=== PATIENT | male | born 2000 | race Caucasian/White ===

== ENCOUNTER 2018-07-03 11:39 | Day surgery (SDC) | payer BC ==
[~2018-07-03 11:39] MED LIST: Dexamethasone 20 MG/5 ML VIAL ONE; Glycopyrrolate 0.2 MG/ML 5 ML SYRINGE ONE; Lidocaine 1% PF 5 ML VIAL ONE; Ondansetron HCl/PF 4 MG/2 ML Vial ONE; PROPOFOL 200 MG/20 ML VIAL ONE; Succinylcholine Chloride 20 MG/ML 10 ml SYRINGE FS ONE
[2018-07-03] MEDS ORDERED: Bupivacaine HCl 0.5%/Epinephrine 1:200,000/PF 30 ml Vial ONE (13:42)
[2018-07-03] MEDS ORDERED: Fentanyl 250 MCG/5 ML VIAL ONE (13:47)
[2018-07-03] MEDS ORDERED: Midazolam HCl 2 mg/2 ml Vial ONE (13:47)
[2018-07-03] MEDS ORDERED: Piperacillin/Tazobactam 3.375 GM VIAL ONE (14:41)
--- NOTE | 2018-07-03 14:41 | HP ---
HISTORY OF PRESENT ILLNESS: Jose Luis Otero is a 18-year-old male [facility] [employer] student from [employer]. He is in [employer]. He lives in the [facility]. His girlfriend is with him. He has had 2 days of generalized abdominal pain localizing to his right lower quadrant associated with anorexia, nausea, but no fever. He presented to the [facility] Emergency Room today and white count was slightl y elevated. CT scan confirmed appendicitis. He is transferred for care. Plan is for a laparoscopic video appendectomy. ALLERGIES: None. TOBACCO: Socially. ALCOHOL: Socially. MEDICATIONS: None routinely. PAST MEDICAL/SURGICAL HISTORY: Noncontributory. REVIEW OF SYSTEMS: Ten point noncontributory. PHYSICAL EXAMINATION: VITAL SIGNS: 18 BMI, 121/76, 97.9 degrees, heart rate 76. HEENT: Unremarkable. LUNGS: Clear to auscultation. CARDIAC: Regular rate and rhythm without murmur or gallop. ABDOMEN: Soft, tenderness in right lower quadrant, guarding and rebound. EXTREMITIES: Unremarkable. ASSESSMENT AND PLAN: Acute appendicitis. I have recommend laparoscopic video appendectomy. Risk of infection, bleeding, reoperation explained. He consents.
[2018-07-03] MEDS ORDERED: Meperidine HCl/PF 25 MG/ML VIAL ONE (15:06)
--- NOTE | 2018-07-03 21:19 | OP ---
DATE OF PROCEDURE: 07/03/2018 PREOPERATIVE DIAGNOSIS: Acute appendicitis. PROCEDURE: Laparoscopic video appendectomy. SURGEON: Shaan Georges M.D. ANESTHESIA: General. Local 0.5% Marcaine with epinephrine, 30 mL FINDINGS: Acute appendicitis. PROCEDURE: Patient was taken to the operating room where under general anesthesia, Rider catheter wa s placed through the procedure and removed at the end. Abdomen clipped of hair, prepared with Chlora Prep, draped in routine fashion. Local anesthetic infiltrated into skin and subcutaneous tissue abou t each port site. Infraumbilical incision made. Pneumoperitoneum to 15 mmHg was obtained with the V eress needle placing with a 5 port. Video laparoscope inserted. Right lateral subcostal incision ma de and a [address] Suprapubic incision made and a 12 port placed. Appendix was acutely inflamed . Mesoappendix taken down with LigaSure. The stump of the appendix divided with Endo-FERNANDO blue load stapler. Stapled cecal stump was hemostatic and secure as the appendix placed in Endobag and removed . Stapled area of dissection, inspected, irrigated, good hemostasis ensured. Irrigant and pneumoper itoneum evacuated. All instruments removed and all skin incisions approximated with interrupted subd ermal 4-0 Monocryl after suprapubic fascia approximated with 0 Vicryl.
== END 2018-07-03 17:30 | disposition home or self-care (01) ==
LOC: SDC 11:39
PROVIDERS: ATTEND Specialist
PROC: 0DTJ4ZZ Resection of Appendix, Percutaneous Endoscopic Approach (ICD-10-PCS; principal; 2018-07-03)
DX: K35.2 Acute appendicitis with generalized peritonitis (principal)
CPT/HCPCS: 88304; 96374; J0670; J1100; J2001; J2175; J2250; J2405; J2543; J2704; J3010